=== PATIENT | male | born 1955 | race Asian ===

== ENCOUNTER 2018-01-08 05:25 | Day surgery (SDC) | payer OTHER ==
[~2018-01-08] VITALS: Ht 165.1 cm; Wt 50.0 kg
[~2018-01-08 05:25] MED LIST: ADV100 IH; ALBU8HFA IH; IPRAHFA IH; NICO7T TD
[2018-01-08] MEDS ORDERED: LIDOCAINE/PF 2% 5 ML VIAL IM ONE (05:26)
[2018-01-08] MEDS ORDERED: FentaNYL CITRATE-PF 100 MCG/2 ML VIAL IVP ONE (05:26)
[2018-01-08] MEDS ORDERED: GLYCOPYRROLATE 0.2 MG/ML VIAL IM ONE (05:26)
[2018-01-08] MEDS ORDERED: PROPOFOL 1% 20 ML VIAL IVP ONE (05:26)
[2018-01-08] MEDS ORDERED: PHENYLEPHRINE HCL 10 MG/ML VIAL IVP ONE (05:26)
[2018-01-08] MEDS ORDERED: ONDANSETRON HCL 4 MG/2 ML VIAL IVP ONE (05:26)
[2018-01-08] MEDS ORDERED: ROCURONIUM BROMIDE 10 MG/ML 5 ML VIAL IVP ONE (05:26)
[2018-01-08] MEDS ORDERED: MIDAZOLAM HCL 2 MG/2 ML VIAL IVP ONE (05:26)
[2018-01-08] MEDS ORDERED: RINGERS SOLUTION,LACTATED 1,000 ML IV ONE ×2 (05:51→06:00)
[2018-01-08] MEDS ORDERED: CeFAZolin 2 GM/DEXTROSE 50 ML IV ONE ×2 (05:52→06:00)
[2018-01-08 06:31] LABS: BASOPHILS % (AUTO) 0.6 % (0.0-2.0); EOSINOPHILS % (AUTO) 3.3 % (1.0-6.0); HEMATOCRIT 48.5 % (41-53); HEMOGLOBIN 16.6 g/dL (13.5-17.5); LYMPHOCYTES # (AUTO) 2.4 K/uL (1.0-4.8); LYMPHOCYTES % (AUTO) 27.4 % (22.0-44.0); MEAN CORPUSCULAR HEMOGLOBIN 31.3 pg (26.0-34.0); MEAN CORPUSCULAR HGB CONC 34.2 G/dL (31.0-37.0); MEAN CORPUSCULAR VOLUME 92 fL (80-100); MONOCYTES # (AUTO) 0.6 K/uL (0.1-1.0); MONOCYTES % (AUTO) 7.1 % (2.0-9.0); NEUTROPHILS # (AUTO) 5.3 K/uL (1.8-7.7); NEUTROPHILS % (AUTO) 61.6 % (40.0-70.0); PLATELET COUNT (AUTO) 184 K/uL (150-450); RED CELL DISTRIBUTION WIDTH 13.6 % (11.5-14.5)
[2018-01-08] MEDS ORDERED: ATOR40TA28 PO (06:41)
[2018-01-08] MEDS ORDERED: MULT-1203 PO (06:41)
[2018-01-08 06:43] LABS: ANION GAP 5 mmol/L (8-16); CALCIUM, TOTAL 8.9 mg/dL (8.8-10.5); CARBON DIOXIDE 31 mmol/L (22-29); CHLORIDE 103 mmol/L (98-107); CREATININE 0.64 mg/dL (0.60-1.30); GLOMERULAR FILTR. RATE CALC > 60 mL/min (>60); GLUCOSE,RANDOM 103 mg/dL (70-110); POTASSIUM 4.4 mmol/L (3.5-5.1); SODIUM SERUM 139 mmol/L (136-145); UREA NITROGEN, BLOOD 10 mg/dL (7-18)
[2018-01-08] MEDS ORDERED: SODIUM CHLORIDE 0.9% 0 ML IV ONE (07:02)
[2018-01-08] MEDS ORDERED: BUPIVACAINE HCL/PF 0.5% 30 ML VIAL ONE (07:02)
[2018-01-08] MEDS ORDERED: GUM MASTIC/STORAX/MSAL/ALCOHOL LIQUID 0.67 ML VIAL TP ONE (07:02)
[2018-01-08] MEDS ORDERED: LIDOCAINE 2%/EPI 1:200,000/PF 20 ML VIAL ONE (07:02)
[2018-01-08] MEDS ORDERED: ONDANSETRON HCL 4 MG/2 ML VIAL IVP PRN (08:30)
[2018-01-08] MEDS ORDERED: HYDROmorphone 2 MG/ML SYRINGE IVP PRN ×2 (08:30)
[2018-01-08] MEDS ORDERED: FentaNYL CITRATE-PF 100 MCG/2 ML VIAL IVP PRN (08:30)
[2018-01-08] MEDS ORDERED: HYDROCODONE/ACETAMINOPHEN 5-325 MG TABLET PO PRN (09:15)
[2018-01-08] MEDS ORDERED: IBUPROFEN 600 MG TABLET PO PRN (09:15)
[2018-01-08] MEDS ORDERED: ACETAMINOPHEN 500 MG TABLET PO PRN (09:15)
[2018-01-08] MEDS ORDERED: IBUPROFEN 600 MG TABLET ONE (10:01)
[2018-01-08] MEDS ORDERED: HYDROCODONE/ACETAMINOPHEN 5-325 MG TABLET ONE (10:43)
== END 2018-01-08 11:40 | disposition home or self-care (01) ==
LOC: SURGERY 05:25
PROVIDERS: ATTEND Surgery
DX: K40.90 Unilateral inguinal hernia, without obstruction or gangrene, not specified as recurrent (principal); J43.9 Emphysema, unspecified; J45.998 Other asthma; F17.210 Nicotine dependence, cigarettes, uncomplicated; I44.4 Left anterior fascicular block; E78.00 Pure hypercholesterolemia, unspecified; E46 Unspecified protein-calorie malnutrition; Z68.1 Body mass index [BMI] 19.9 or less, adult; Z79.899 Other long term (current) drug therapy; Z79.82 Long term (current) use of aspirin; Z82.49 Family history of ischemic heart disease and other diseases of the circulatory system; Z83.3 Family history of diabetes mellitus
CPT/HCPCS: 36415; 49650; 80048; 85025; 88304; 93005; C1781 ×2; J0690 ×2; J2250; J2370; J2405; J2704; J3010; J3490 ×4; J7120; J7030